=== PATIENT | female | born 2000 | race African-American/Black ===

== ENCOUNTER 2024-03-29 09:08 | Emergency (ER) | payer BC ==
[2024-03-29 10:06] VITALS: RESP 18; BMI 23.7
[2024-03-29 10:14] LABS: HEMATOCRIT 26.9 % (32.4-45.2); HEMOGLOBIN 9.1 GM/dL (10.7-15.3); MCH 34.8 pg (25.7-33.7); MCHC 33.7 g/dl (32.0-36.0); MEAN PLT VOLUME 7.2 fl (7.5-11.1); PLATELET COUNT 612 10^3/uL (134-434); RBC 2.61 M/mm3 (3.60-5.2); RDW 22.1 % (11.6-15.6); WHITE BLOOD COUNT 12.2 K/mm3 (4.0-10.0)
[2024-03-29 10:32] LABS: POTASSIUM 4.6 mmol/L (3.5-5.1)
[2024-03-29] MEDS ORDERED: HYDROmorphone HCL CARPU-JECT 2 MG/1 ML DISP.SYRIN ONE ×2 (10:32→12:00)
[2024-03-29 10:34] LABS: CALCIUM 9.6 mg/dL (8.5-10.1)
[2024-03-29 10:35] LABS: ALBUMIN 4.5 g/dl (3.4-5.0); ANISOCYTOSIS 2+; BLOOD UREA NITROGEN 5.3 mg/dL (7-18); MACROCYTOSIS 1+; MAGNESIUM 1.9 mg/dL (1.8-2.4); SICKELED CELLS 1+
[2024-03-29 10:38] LABS: CREATININE 0.4 mg/dL (0.55-1.3)
[2024-03-29] MEDS: SODIUM CHLORIDE 0.9% 500 ML INFUS.BAG IV ONE (10:38)
[2024-03-29] MEDS: HYDROmorphone HCL 2 MG TABLET PO ONE (10:38)
[2024-03-29 10:40] LABS: BILIRUBIN,TOTAL 8.7 mg/dL (0.2-1); TOT PROT 8.4 g/dl (6.4-8.2)
[2024-03-29] MEDS: HYDROmorphone HCl 2 MG/ML VIAL IVPUSH ONE ×2 (10:52→12:01)
[2024-03-29] MEDS ORDERED: ONDANSETRON 4 MG/2 ML VIAL ONE (11:01)
[2024-03-29] MEDS: ONDANSETRON 4 MG/2 ML VIAL IVPUSH ONE (11:04)
[2024-03-29 12:24] LABS: EPI CELLS 6 /uL (0-25.1); HYALINE CASTS 0 /uL (0-3.1); URINE APPEARANCE CLEAR; URINE BACTERIA 73 /uL (0-1359); URINE BILIRUBIN NEGATIVE (NEGATIVE); URINE COLOR YELLOW; URINE GLUCOSE (UA) NEGATIVE (NEGATIVE); URINE KETONE NEGATIVE (NEGATIVE); URINE LEUK ESTERASE NEGATIVE (NEGATIVE); URINE NITRITE NEGATIVE (NEGATIVE); URINE PROTEIN NEGATIVE (NEGATIVE); URINE RBC 17 /uL (0-23.9); URINE UROBILINOGEN 0.2 mg/dL (0.2-1.0); URINE WBC 4 /uL (0-25.8)
[2024-03-29 13:13] VITALS: BP 103/61; PULSE 72; TEMP 97.7
== END 2024-03-29 14:07 | disposition home or self-care (01) ==
LOC: JER 09:08
PROC: 3E033GC Introduction of Other Therapeutic Substance into Peripheral Vein, Percutaneous Approach (ICD-10-PCS; principal; 2024-03-29)
PROC: 3E033NZ Introduction of Analgesics, Hypnotics, Sedatives into Peripheral Vein, Percutaneous Approach (ICD-10-PCS; 2024-03-29)
PROC: 3E033NZ Introduction of Analgesics, Hypnotics, Sedatives into Peripheral Vein, Percutaneous Approach (ICD-10-PCS; 2024-03-29)
DX: D57.00 Hb-SS disease with crisis, unspecified (principal); M54.50 Low back pain, unspecified
CPT/HCPCS: 71045-TC-FY; 80053; 81003; 83735; 84703; 85025; 85045; 87086; 93005; 93010; 99285-25